=== PATIENT | male | born 1975 | race Caucasian/White ===

== ENCOUNTER 2020-04-25 09:18 | Emergency (ER) | payer BC ==
[2020-04-25] MEDS ORDERED: Triamcinolone Acetonide 40 MG/ML 1 ML SDV INJECT ONE (09:39)
--- NOTE | 2020-04-25 09:40 | EDM.PDOC ---
ED HPI GENERAL MEDICAL PROBLEM - General Chief Complaint: Skin Complaint Stated Complaint: BOTH ARMS & LT EYE HIVES Time Seen by Provider: 04/25/20 09:35 Source of Information: Reports: Patient History Limitations: Reports: No Limitations - History of Present Illness INITIAL COMMENTS - FREE TEXT/NARRATIVE: PtDesire presents to ER with complaints of rash to his extremities, hands, face, and genitalia. He states that he was exposed to poison heraclio, but states that it is not improving. He has been taking benadryl. No throat tightness. No shortness of breath. Denies any nausea, vomiting, or diarrhea. Denies any new meds or allergies. Associated Symptoms: Reports: Rash. Denies: Shortness of Breath - Related Data Allergies Allergy/AdvReac Type Severity Reaction Status Date / Time No Known Allergies Allergy Verified 04/25/20 09:37 Home Meds: Home Meds . [No Known Home Meds] 04/25/20 [History] Fexofenadine [Barbara] 180 mg PO DAILY PRN 04/25/20 [History] diphenhydrAMINE [Benadryl] 25 mg PO Q4H PRN 04/25/20 [History] ED ROS GENERAL - Review of Systems Review Of Systems: See Below Constitutional: Reports: No Symptoms HEENT: Reports: No Symptoms Respiratory: Reports: No Symptoms Cardiovascular: Reports: No Symptoms Endocrine: Reports: No Symptoms GI/Abdominal: Reports: No Symptoms : Reports: No Symptoms Musculoskeletal: Reports: No Symptoms Skin: Reports: Rash, Erythema Neurological: Reports: No Symptoms Psychiatric: Reports: No Symptoms Hematologic/Lymphatic: Reports: No Symptoms Immunologic: Reports: No Symptoms ED EXAM, SKIN/RASH Exam: See Below Exam Limited By: No Limitations General Appearance: Alert, WD/WN, No Apparent Distress Eye Exam: Bilateral Eye: Conjunctival Injection, EOMI, PERRL Throat/Mouth: Normal Inspection, Normal Lips, Normal Teeth, Normal Oropharynx, No Airway Compromise Skin: Other (raised erythema to hands, extremities, and face. Appearance consistent with contact dermatitis.) Course - Vital Signs Last Recorded V/S: Last Vital Signs Temp 36.9 C 04/25/20 09:30 Pulse 79 04/25/20 09:30 Resp 16 04/25/20 09:30 BP 150/89 H 04/25/20 09:30 Pulse Ox 97 04/25/20 09:30 - Orders/Labs/Meds Meds: Medications Discontinued Medications Generic Name Dose Route Start Last Admin Trade Name Nina PRN Reason Stop Dose Admin Triamcinolone Acetonide 40 mg 04/25/20 09:39 04/25/20 09:45 Kenalog-40 INJECT 04/25/20 09:40 40 mg ONETIME ONE Administration Departure - Departure Time of Disposition: 10:15 Disposition: Home, Self-Care 01 Clinical Impression: Contact dermatitis due to poison heraclio - Discharge Information Instructions: Contact Dermatitis, [id number] Referrals: PCP,Not In Area [Primary Care Provider] - Forms: ED Department Discharge Additional Instructions: Prednisone 20mg 1 tab daily for 6 days Benadryl 25mg 2 tabs every 4-6 hours as needed for itching. Follow-up in clinic in 5-7 days if not gradually improving. Sepsis Event Note (ED) - Focused Exam Vital Signs: Vital Signs Temp Pulse Resp BP Pulse Ox 04/25/20 09:30 36.9 C 79 16 150/89 H 97 - Problem List Review Problem List Initiated/Reviewed/Updated: Yes - Assessment/Plan Plan: Prednisone 20mg 1 tab daily for 6 days Benadryl 25mg 2 tabs every 4-6 hours as needed for itching. Follow-up in clinic in 5-7 days if not gradually improving.
== END 2020-04-25 09:59 | disposition home or self-care (01) ==
LOC: VM.ED 09:18
DX: L23.7 Allergic contact dermatitis due to plants, except food (principal)
CPT/HCPCS: 96372; 99282; J3301; 99283

== ENCOUNTER 2020-11-21 15:41 | Emergency (ER) | payer BC ==
[2020-11-21 16:41] LABS: CHLORIDE,CL 105 mmol/L (98-107); SODIUM,NA 142 mmol/L (136-145)
[2020-11-21 16:42] LABS: ANION GAP 11.9 mmol/L (5-15)
[2020-11-21] MEDS ORDERED: Triamcinolone Acetonide 40 MG/ML 1 ML SDV INJECT ONE (16:45)
--- NOTE | 2020-11-21 18:25 | EDM.PDOC ---
ED HPI GENERAL MEDICAL PROBLEM - General Chief Complaint: Allergic Reaction Stated Complaint: EYE INFECTION Time Seen by Provider: 11/21/20 15:41 Source of Information: Reports: Patient History Limitations: Reports: No Limitations - History of Present Illness INITIAL COMMENTS - FREE TEXT/NARRATIVE: Pt. presents to ER with complaints of erythema, pruritus and edema to face on un known etiology. Pt. states that he has not been on any new medications or tried any new foods. Pt. states that he is not short of breath. Denies any throat tightness. No chest pain or lightheadedness. Pt. states that the reaction is located only on the face. Pt. was seen in this ER with a similar reaction to a plant last summer. Presentation was quite similar. At that time, he thought it was poison oak. Today, he denies any exposure to any plants that he is aware of. He does have some problems with seasonal allergies. Onset: Today Location: Reports: Face - Related Data Allergies Allergy/AdvReac Type Severity Reaction Status Date / Time No Known Allergies Allergy Verified 04/25/20 09:37 Home Meds: Home Meds . [No Known Home Meds] 04/25/20 [History] Fexofenadine [Barbara] 180 mg PO DAILY PRN 04/25/20 [History] diphenhydrAMINE [Benadryl] 25 mg PO Q4H PRN 04/25/20 [History] Past Medical History - Past Health History Medical/Surgical History: Denies Medical/Surgical History ED ROS ALLERGIC REACTION - Review of Systems Review Of Systems: Comprehensive ROS is negative, except as noted in HPI. ED EXAM GENERAL NO PERIP PULSE - Physical Exam Exam: See Below Exam Limited By: No Limitations General Appearance: Alert, WD/WN, No Apparent Distress Eye Exam: Bilateral Eye: EOMI, Normal Fundi, Normal Inspection, PERRL, Other (No conjuctivitis.) Throat/Mouth: Normal Inspection, Normal Lips, Normal Teeth, Normal Gums, Normal Oropharynx, Normal Voice Head: Atraumatic, Facial Swelling, Facial Tenderness Neck: Normal Inspection, Supple, Non-Tender, Full Range of Motion Respiratory/Chest: No Respiratory Distress, Lungs Clear, Normal Breath Sounds, No Accessory Muscle Use, Chest Non-Tender Cardiovascular: Normal Peripheral Pulses, Regular Rate, Rhythm, No Edema, No JVD Course - Vital Signs Last Recorded V/S: Last Vital Signs Temp 36.8 C 11/21/20 15:41 Pulse 80 11/21/20 15:41 Resp 16 11/21/20 15:41 BP 142/94 H 11/21/20 15:41 Pulse Ox 98 11/21/20 15:41 - Orders/Labs/Meds Labs: Laboratory Tests 11/21/20 11/21/20 Range/Units 15:17 15:17 WBC 7.8 (4.0-10.0) x10^3/uL RBC 5.12 (4.5-6.0) x10^6/uL Hgb 15.4 (14.0-18.0) g/dL Hct 43.7 (40.0-52.0) % MCV 85.4 (78.0-93.0) fL MCH 30.1 (26.0-32.0) pg MCHC 35.2 (32.0-36.0) g/dL RDW Coeff of Juan 12.4 (10.0-15.0) % Plt Count 214 (130-400) x10^3/uL Neut % (Auto) 60.9 (50.0-80.0) % Lymph % (Auto) 23.8 L (25.0-50.0) % Ponce % (Auto) 7.3 (2.0-11.0) % Eos % (Auto) 7.6 H (0.0-4.0) % Baso % (Auto) 0.4 (0.2-1.2) % Sodium 142 (136-145) mmol/L Potassium 3.9 (3.5-5.1) mmol/L Chloride 105 (98-107) mmol/L Carbon Dioxide 29 (21-32) mmol/L Anion Gap 11.9 (5-15) mmol/L BUN 15 (7-18) mg/dL Creatinine 1.1 (0.70-1.30) mg/dL Est Cr Clr Drug Dosing TNP Estimated GFR (MDRD) > 60 Glucose 94 (70-99) mg/dL Calcium 8.8 (8.5-10.1) mg/dL Corrected Calcium 8.88 (8.5-10.1) mg/dL Total Bilirubin 0.3 (0.2-1.0) mg/dL AST 20 (15-37) U/L ALT 31 (16-63) U/L Alkaline Phosphatase 73 (46-116) U/L C-Reactive Protein 0.3 (<=0.9) mg/dL Total Protein 7.4 (6.4-8.2) g/dL Albumin 3.9 (3.4-5.0) g/dL Globulin 3.5 Albumin/Globulin Ratio 1.11 Meds: Medications Discontinued Medications Generic Name Dose Route Start Last Admin Trade Name Nina PRN Reason Stop Dose Admin Triamcinolone Acetonide 80 mg 11/21/20 16:45 Triamcinolone Acetonide 40 Mg/Ml 1 Ml Sdv INJECT 11/21/20 16:46 ONETIME ONE Departure - Departure Time of Disposition: 17:05 Disposition: Home, Self-Care 01 Clinical Impression: Allergic reaction - Discharge Information Instructions: Allergies, Adult, Prednisone tablets Referrals: PCP,None [Primary Care Provider] - Forms: ED Department Discharge Additional Instructions: Prednisone 20mg 1 tab daily for 6 days Diphenhydramine 25mg 2 tabs every 6 hours for itching Cold compresses to face for discomfort. Sepsis Event Note (ED) - Focused Exam Vital Signs: Vital Signs Temp Pulse Resp BP Pulse Ox 11/21/20 15:41 36.8 C 80 16 142/94 H 98 - Problem List Review Problem List Initiated/Reviewed/Updated: Yes - Assessment/Plan Plan: Prednisone 20mg 1 tab daily for 6 days Diphenhydramine 25mg 2 tabs every 6 hours for itching Cold compresses to face for discomfort.
== END 2020-11-21 17:05 | disposition home or self-care (01) ==
LOC: VM.ED 15:41
DX: T78.40XA Allergy, unspecified, initial encounter (principal)
CPT/HCPCS: 36415; 80053; 85025; 86140; 99283; J3301

== ENCOUNTER 2021-05-19 07:52 | Emergency (ER) | payer BC ==
[2021-05-19] MEDS ORDERED: methylPREDNISolone Sodium Succinate 125 MG/2 ML SDV IM ONE (08:27)
--- NOTE | 2021-05-19 08:35 | EDM.PDOC ---
ED HPI GENERAL MEDICAL PROBLEM - General Chief Complaint: Allergic Reaction Stated Complaint: SWELLING IN FACE Time Seen by Provider: 05/19/21 08:10 Source of Information: Reports: Patient History Limitations: Reports: No Limitations - History of Present Illness INITIAL COMMENTS - FREE TEXT/NARRATIVE: Oh is a 46 year old male who presents to ER with complaints of swelling and itching to his eyelids. Has itching to his groin and bilateral arms as well. Mild hives noted on his arms. Started noting the symptoms yesterday morning, has not yet taken any Benadryl. Has had intermittent issues with this, two other times it got to this extent. First episode happened last spring. In between that time, gets itchy watery eyes but do not swell. 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 Unsure of what is reacting to. Has not used any new products or had any new foods. No breathing difficulties. Feels like his uvula is swollen but no trouble swallowing. Duration: Day(s):, Getting Worse Location: Reports: Face, Pelvis Quality: Reports: Other (itching) Severity: Moderate Associated Symptoms: Denies: Confusion, Chest Pain, Nausea/Vomiting, Shortness of Breath - Related Data Allergies Allergy/AdvReac Type Severity Reaction Status Date / Time No Known Allergies Allergy Verified 05/19/21 08:09 Home Meds: Home Meds . [No Known Home Meds] 04/25/20 [History] Past Medical History - Past Health History Medical/Surgical History: Denies Medical/Surgical History - Past Surgical History Musculoskeletal Surgical History: Reports: Other (See Below) Other Musculoskeletal Surgeries/Procedures:: tight rope ankle surgery Social & Family History - Tobacco Use Tobacco Use Status *Q: Unknown Ever Used Tobacco ED ROS ALLERGIC REACTION - Review of Systems Review Of Systems: See Below Constitutional: Denies: Fever, Chills, Malaise, Weakness, Fatigue, Decreased Appetite HEENT: Reports: Throat Swelling. Denies: Ear Pain, Rhinitis, Sinus Problem, Throat Pain Respiratory: Denies: Shortness of Breath, Cough Cardiovascular: Denies: Chest Pain, Edema, Lightheadedness Endocrine: Denies: Fatigue GI/Abdominal: Denies: Abdominal Pain, Constipation, Diarrhea, Nausea, Vomiting : Reports: No Symptoms Musculoskeletal: Reports: No Symptoms Skin: Reports: Urticaria Neurological: Reports: No Symptoms ED EXAM GENERAL NO PERIP PULSE - Physical Exam Exam: See Below Exam Limited By: No Limitations General Appearance: Alert, WD/WN, No Apparent Distress Eye Exam: Bilateral Eye: EOMI, PERRL, Other (bilateral eye lid swelling, redness) Ears: Normal External Exam, Normal TMs Nose: Normal Inspection, Normal Mucosa, No Blood Throat/Mouth: Normal Inspection, Normal Oropharynx Head: Normocephalic Neck: Normal Inspection, Supple, Non-Tender Respiratory/Chest: No Respiratory Distress, Lungs Clear, Normal Breath Sounds Cardiovascular: Regular Rate, Rhythm Skin Exam: Warm, Dry, Other (hives noted to right upper arm) Course - Vital Signs Last Recorded V/S: Last Vital Signs Temp 98.6 F 05/19/21 07:58 Pulse 73 05/19/21 07:58 Resp 18 05/19/21 07:58 BP 137/86 05/19/21 07:58 Pulse Ox 99 05/19/21 07:58 - Orders/Labs/Meds Meds: Medications Discontinued Medications Generic Name Dose Route Start Last Admin Trade Name Nina PRN Reason Stop Dose Admin Methylprednisolone Sodium Succinate 125 mg 05/19/21 08:27 Methylprednisolone Sodium Succinate 125 Mg/2 Ml Sdv IM 05/19/21 08:28 ONETIME ONE Departure - Departure Time of Disposition: 08:33 Disposition: Home, Self-Care 01 Condition: Good Clinical Impression: Contact dermatitis - Discharge Information *PRESCRIPTION DRUG MONITORING PROGRAM REVIEWED*: No *COPY OF PRESCRIPTION DRUG MONITORING REPORT IN PATIENT LETY: No Instructions: Allergies, Adult Additional Instructions: 1. Benadryl 50 mg every 4 hours for the next 24 hours 2. Start taking daily zyrtec or Claritin for reaction prevention 3. Prednisone 40 mg daily for 4 days 4. Follow up with primary care provider if recurring reactions persist, may need allergy testing. Sepsis Event Note (ED) - Focused Exam Vital Signs: Vital Signs Temp Pulse Resp BP Pulse Ox 05/19/21 07:58 98.6 F 73 18 137/86 99
== END 2021-05-19 08:41 | disposition home or self-care (01) ==
LOC: VM.ED 07:52
DX: L25.9 Unspecified contact dermatitis, unspecified cause (principal)
CPT/HCPCS: 96372; 99282; J2930